=== PATIENT | male | born 1990 | race Caucasian/White ===

== ENCOUNTER 2017-03-22 17:04 | Emergency (ER) | payer OTHER ==
[2017-03-22] MEDS ORDERED: Acetaminophen TAB* 325 MG PO ONE (19:38)
--- NOTE | 2017-03-23 00:33 | UC ---
Issac Ryan Alok, scribed for Beverley Pierre MD on 03/22/17 at 1936 . HPI Febrile Illness - HPI Summary HPI Summary: 26M presents to [facility] with a fever accompanied by chills, myalgia, and fatigue since earlier today. Pt also notes post nasal drip and slight cough productive of sputum at times. Pt denies N/V/D. Pt denies ear pain. Pt as states that he is concerned for possible lead exposure due to hiking through a moist area with lead in the ground. Pt wears a mouth guard at night for teeth grinding. Pt denies h/o mono. - History of Current Complaint Chief Complaint: UCGeneralIllness Time Seen by Provider: 03/22/17 19:24 Hx Obtained From: Patient Onset/Duration: Started Hours Ago, Still Present Timing: Constant Temperature: 100.2 F Initial Severity: Moderate Current Severity: Moderate Pain Intensity: 0 Pain Scale Used: 0-10 Numeric Aggravating Factors: Nothing Alleviating Factors: Nothing Associated Signs and Symptoms: Chills, Cough, Myalgia - Allergy/Home Medications Allergies/Adverse Reactions: Allergies Allergy/AdvReac Type Severity Reaction Status Date / Time No Known Allergies Allergy Verified 03/22/17 18:24 PMH/Surg Hx/FS Hx/Imm Hx Previously Healthy: Yes Endocrine/Hematology History: Denies: Hx Diabetes - Surgical History Surgery Procedure, Year, and Place: no surgical hx Infectious Disease History: No Infectious Disease History: Denies: Traveled Outside the [place] in Last 30 Days - Family History Known Family History: Negative: Diabetes - Social History Occupation: Student Alcohol Use: Rare Substance Use Type: Reports: None Smoking Status (MU): Never Smoked Tobacco Review of Systems Constitutional: Fever, Chills, Fatigue Skin: Negative Eyes: Negative ENT: Other - post-nasal drip Respiratory: Cough Cardiovascular: Negative Gastrointestinal: Negative Genitourinary: Negative Motor: Negative Neurovascular: Negative Musculoskeletal: Myalgia Neurological: Negative Psychological: Negative All Other Systems Reviewed And Are Negative: Yes Physical Exam Triage Information Reviewed: Yes Appearance: No Pain Distress, Well-Nourished, Ill-Appearing Vital Signs: Initial Vital Signs Temp 100.2 F 03/22/17 18:24 Pulse 81 03/22/17 18:24 Resp 16 03/22/17 18:24 BP 136/75 03/22/17 18:24 Pulse Ox 100 03/22/17 18:24 Vital Signs Reviewed: Yes Eyes: Positive: Conjunctiva Clear ENT: Positive: Pharyngeal erythema, TMs normal, Other: - turbinates with some swelling bilat. Neck: Positive: Supple, Nontender, No Lymphadenopathy Respiratory: Positive: Lungs clear, Normal breath sounds, No respiratory distress Cardiovascular: Positive: RRR, No Murmur, Pulses Normal, Brisk Capillary Refill Abdomen Description: Positive: Nontender, No Organomegaly, Soft. Negative: CVA Tenderness (R), CVA Tenderness (L), Distended, Guarding, McBurney's Point Tenderness, Peritoneal Signs Bowel Sounds: Positive: Present Musculoskeletal: Positive: Strength Intact, ROM Intact Neurological: Positive: Alert, Muscle Tone Normal Psychological Exam: Normal Skin Exam: Normal Course/Dx - Course Course Of Treatment: Pt medications reviewed this visit. High BP noted. Pt presented with fever and body aches. Will do strep test and discharge home with Flonase. Pt given 650 mg acetaminophen at [facility]. Strep results negative. - Febrile Illness Differential Diagnoses: Fever of Unknown Origin, Pneumonia, Other: - viral syndrome, strep - Diagnoses Clinic Provider Diagnoses: Elevated BP without dx of HTN. Fever. Viral syndrome Discharge - Discharge Plan Condition: Stable Disposition: HOME Prescriptions: Fluticasone NASAL SPRAY 50MCG* [Flonase NASAL SPRAY 50MCG*] 2 spray BOTH NARES DAILY #1 btl Patient Education Materials: Fever in Adults (ED), Upper Respiratory Infection (ED) Referrals: [facility] [facility] [Outside] Additional Instructions: Your rapid strep was negative. We do not feel you need lead testing at this time. If you get established with a primary care provider they can determine if you need any further testing. Return to urgent care if you have any new or worsening symptoms. The documentation as recorded by the Issac andrade Alok accurately reflects the service I personally performed and the decisions made by me, Beverley Pierre MD.
== END 2017-03-22 20:31 | disposition home or self-care (01) ==
LOC: UCEAST 17:04
DX: B34.9 Viral infection, unspecified (principal); R03.0 Elevated blood-pressure reading, without diagnosis of hypertension; R50.9 Fever, unspecified
CPT/HCPCS: 87651; 99202; A9270-GY; G0463